=== PATIENT | female | born 1990 | race Caucasian/White ===

== ENCOUNTER 2017-05-04 20:17 | Inpatient (IN) | payer OTHER ==
[2017-05-04 21:03] LABS: AMNISURE (ROM) POSITIVE (NEGATIVE)
[2017-05-04 21:06] LABS: APPEARANCE,URINE CLOUDY; BILIRUBIN,URINE NEGATIVE (NEGATIVE); GLUCOSE, URINE NEGATIVE (NEGATIVE); KETONES,URINE TRACE mg/dL (NEGATIVE); LEUKOCYTE ESTERASE,URINE TRACE (NEGATIVE); NITRITE,URINE NEGATIVE (NEGATIVE); PROTEIN,URINE NEGATIVE (NEGATIVE); UROBILINOGEN,URINE NEGATIVE mg/dL (<2.0)
[2017-05-04 21:27] LABS: URINE BARBITURATES SCREEN NEGATIVE; URINE METHADONE SCREEN NEGATIVE; URINE OPIATES LOW NEGATIVE; URINE PHENCYCLIDINE SCREEN NEGATIVE
[2017-05-04] MEDS ORDERED: RINGERS SOLUTION,LACTATED 1,000 ML IV ONE (21:37)
[2017-05-04] MEDS ORDERED: RINGERS SOLUTION,LACTATED 300 ML IV ONE (21:42)
[2017-05-04] MEDS ORDERED: OXYTOCIN/NORMAL SALINE 20 UNIT/1,000 ML RTUINJ IV PRN (21:42)
[2017-05-04] MEDS ORDERED: OXYTOCIN/NORMAL SALINE 20 UNIT/1,000 ML RTUINJ ONE (22:19)
[2017-05-04] MEDS: RINGERS SOLUTION,LACTATED 1,000 ML IV PRN (22:52)
[2017-05-04 23:30] LABS: ABSOLUTE EOSINOPHILS # (AUTO) 0.1 10^3/uL (0.0-0.6); ABSOLUTE LYMPHOCYTES (AUTO) 1.8 10^3/uL (0.5-4.7); ABSOLUTE MONOCYTES (AUTO) 0.5 10^3/uL (0.1-1.4); ABSOLUTE NEUT (AUTO) 4.4 10^3/uL (1.7-8.2); BASOPHILS % (AUTO) 0.6 % (0-2); EOSINOPHILS % (AUTO) 1.4 % (0-6); HEMATOCRIT 33.9 % (36.0-47.0); HEMOGLOBIN 11.5 g/dL (12.0-15.5); HGB HCT DIFFERENCE 0.6; MEAN CORPUSCULAR HGB CONC 33.9 g/dL (32.0-36.0); MEAN CORPUSCULAR VOLUME 86 fl (80-97); MONOCYTES % (AUTO) 6.8 % (3-13); RED BLOOD COUNT 3.96 10^6/uL (3.72-5.28); RED CELL DISTRIBUTION WIDTH 14.1 % (11.5-14.0); SEGMENTED NEUTROPHILS % (AUTO) 65.2 % (42-78); WHITE BLOOD COUNT 6.8 10^3/uL (4.0-10.5)
[2017-05-05] MEDS ORDERED: PROMETHAZINE HCL INJ 25 MG/1 ML VIAL ONE (03:08)
[2017-05-05] MEDS ORDERED: PROMETHAZINE HCL INJ 25 MG/1 ML VIAL IV ONE (03:15)
[2017-05-05] MEDS ORDERED: SUMATRIPTAN 20 MG NASAL SPRAY UD NASL ONE ×2 (03:46→04:00)
[2017-05-05] MEDS ORDERED: EPHEDRINE SULFATE INJ 50 MG/1 ML AMPULE ONE ×2 (05:27→06:49)
[2017-05-05] MEDS ORDERED: FENTANYL/BUPIVACAINE/NS/PF 200 MCG/100 ML RTUINJ EPI ONE (05:28)
[2017-05-05] MEDS ORDERED: BUPIVACAINE HCL 0.25 % INJ/PF (2.5 MG/1 ML) 30 ML VIAL ONE (05:29)
[2017-05-05] MEDS: RINGERS SOLUTION,LACTATED 1,000 ML IV PRN (06:54)
[2017-05-05] MEDS ORDERED: OXYTOCIN/NORMAL SALINE 20 UNIT/1,000 ML RTUINJ IV PRN ×2 (08:20→15:23)
[2017-05-05] MEDS ORDERED: NA PHOS,M-B/NA PHOS,DI-BA (ADULT) 133 ML ENEMA PR PRN (15:23)
[2017-05-05] MEDS ORDERED: ZOLPIDEM TARTRATE 5 MG TABLET PO PRN (15:23)
[2017-05-05] MEDS ORDERED: DIBUCAINE 1% OINTMENT 28 GM TP PRN (15:23)
[2017-05-05] MEDS ORDERED: PROMETHAZINE HCL INJ 25 MG/1 ML VIAL IV PRN (15:23)
[2017-05-05] MEDS ORDERED: GLYCERIN/WITCH HAZEL LEAF 1 EACH MED..PAD TP PRN (15:23)
[2017-05-05] MEDS ORDERED: DIPH/PERTUSS(ACELL)/TETANUS VAC/PF 0.5 ML SYR (>=10YO) IM PRN (15:23)
[2017-05-05] MEDS ORDERED: PSEUDOEPHEDRINE HCL 30 MG TABLET PO PRN (15:23)
[2017-05-05] MEDS ORDERED: MAGNESIUM HYDROXIDE SUSP 30 ML UDCUP PO PRN (15:23)
[2017-05-05] MEDS ORDERED: PROMETHAZINE HCL 25 MG SUPP.RECT PR PRN (15:23)
[2017-05-05] MEDS ORDERED: DIPHENHYDRAMINE HCL 25 MG CAPSULE PO PRN (15:23)
[2017-05-05] MEDS ORDERED: MEASLES,MUMPS&RUBELLA VACC/PF 0.5 ML VIAL SUBCUT PRN (15:23)
[2017-05-05] MEDS ORDERED: PROMETHAZINE HCL 25 MG TABLET PO PRN (15:23)
[2017-05-05] MEDS ORDERED: ACETAMINOPHEN 650 MG SUPP.RECT PR PRN (15:23)
[2017-05-05] MEDS ORDERED: BENZOCAINE/MENTHOL AEROSOL SPRAY 56 ML TOP PRN (15:23)
[2017-05-05] MEDS ORDERED: ACETAMINOPHEN WITH CODEINE #3 TABLET PO PRN ×2 (15:23)
[2017-05-05] MEDS ORDERED: IBUPROFEN 800 MG TABLET ONE (15:26)
[2017-05-05] MEDS ORDERED: ACETAMINOPHEN WITH CODEINE #3 TABLET ONE (15:26)
--- NOTE | 2017-05-05 17:20 | Delivery Summary ---
Del Sum A-C Datetime Report Generated by CPN: 05/05/2017 17:20 DELIVERY PERSONNEL DELIVERY PERSONNEL: [id number] Delivery Doctor:: Marie Das MD Labor and Delivery Nurse:: Karen Sydney, RN Nursery Nurse:: Alfreda Worthington, RN MATERNAL INFORMATION Delivery Anesthesia: Epidural Medications After Delivery: Pitocin Drip 20 Units/1000ml NSS Estimated Blood Loss (ml): 200 Maternal Complications: Prolonged Second Stage > 2 Hrs LABOR SUMMARY EDC: 05/03/2017 00:00 No. Babies in Womb: 0 Attempted: No Labor Anesthesia: Epidural LABOR INFORMATION Reason for Induction: Not Applicable Onset of Labor: 05/05/2017 05:18 Complete Dilatation: 05/05/2017 10:26 Oxytocin: Augmentation Group B Beta Strep: negative Steroids Given: None Reason Steroids Not Administered: Not Applicable MEMBRANES Membranes Rupture Method: Spontaneous Rupture of Membranes: 05/04/2017 18:00 Length of Rupture (hr): 21.10 Amniotic Fluid Color: Clear Amniotic Fluid Amount: Small Amniotic Fluid Odor: Normal STAGES OF LABOR Stage 1 hr: 5 Stage 1 min: 8 Stage 2 hr: 4 Stage 2 min: 40 Stage 3 hr: 0 Stage 3 min: 5 Total Time in Labor hr: 9 Total Time in Labor min: 53 VAGINAL DELIVERY Episiotomy: None Laceration Extension: N/A Laceration Type: None Laceration Repair: Not Applicable Sponge Count Correct: Yes Sharps Count Correct: Yes CSECTION DELIVERY Primary Indication: N/A Secondary Indication: N/A CSection Incidence: N/A Labor: N/A Elective: N/A CSection Incision: N/A BABY A INFORMATION Delivery Date/Time: 05/05/2017 15:06 Method of Delivery: Vaginal Born in Route : No : N/A Forceps: N/A Vacuum Extraction: N/A Shoulder Dystocia : No ASSISTED DELIVERY BABY A Indication for Assisted Delivery: lates Catheter Prior to Procedure: Yes Station Vacuum/Forcep Apply: +3 Position Vacuum/Forcep Apply: Left Occipital Anterior Vacuum Number of Pulls: 2 Vacuum Number of PopOffs: 2 Vacuum Maximum Pressure Obtained: 500 Reduce Pressure btwn Ctx: Yes Vacuum Cyber Security Systems Engineer: [place] Total Time Vacuum Applied: 2 PRESENTATION/POSITION BABY A Presentation: Cephalic Cephalic Presentation: Vertex Vertex Position: Left Occipital Anterior Breech Presentation: N/A PLACENTA INFORMATION BABY A Placenta Delivery Time : 05/05/2017 15:11 Placenta Method of Delivery: Spontaneous Placenta Status: Delivered SCORES BABY A Heart Rate 1 min: >100 bpm Resp Effort 1 min: Good Cry Reflex Irritability 1 min: Cough or Sneeze or Pulls Away Muscle Tone 1 min: Active Motion Color 1 min: Blue/Pale Resuscitation Effort 1 min: Tactile Stimulation SCORE 1 MIN: 8 Heart Rate 5 min: >100 bpm Resp Effort 5 min: Good Cry Reflex Irritability 5 min: Cough or Sneeze or Pulls Away Muscle Tone 5 min: Some Flexion of Extremities Color 5 min: Completely Cerulean Resuscitation Effort 5 min: N/A SCORE 5 MIN: 9 INFORMATION BABY A Gestational Age at Delivery: 40.2 Gestational Status: Full Term- 39- 40.6 Weeks Infant Outcome : Liveborn Infant Condition : Stable Sex: Female IDENTIFICATION BABY A Infant Verification Date/Time: 05/05/2017 15:30 ID Band Number: [id number] Mother's Name Verified: Yes RN Verifying : Amy Palacio, RN/ B. Nicholedy, RN WEIGHT/LENGTH BABY A Infant Birthweight (gm): 3500 Weight (lb): 7 Infant Weight (oz): 11 Infant Length (in): 20.00 Length (cm): 50.80 CORD INFORMATION BABY A No. 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
--- NOTE | 2017-05-05 18:10 | Admission Physical ---
Datetime Report Generated by CPN: 05/05/2017 18:10 CURRENT ADMISSION Hx Assessment: The History has been Reviewed and is Current Chief Complaint: Suspected Ruptured Membranes Admit Plan: Initiate Labor Induction Protocol ALLERGIES Medication Allergies: No Medication Allergies: No Known Allergies (05/04/2017) Latex: No Latex Allergies Environmental Allergies: cats OBSTETRICAL HISTORY EDC: 05/03/2017 00:00 : 1 Para: 0 Term: 0 : 0 SAB: 0 IAB: 0 Ectopic: 0 Livin Cesareans: 0 VBACs: 0 Multiple Births: 0 Gestational Diabetes: No Rh Sensitization: No Incompetent Cervix: No JORGE: No Infertility: No ART Treatment: No Uterine Anomaly: No IUGR: No Hx Previous C/S: No Macrosomia: No Hx Loss/Stillborn: No PIH: No Hx : No Placenta Previa/Abruption: No Depression/PP Depression: No PTL/PROM: No Post Hemorrhage: No Current Procedures: Ultrasound; NST Obstetrical History Comments: g1- current pregnacy SEE RECORDS Alcohol: No Marijuana : No Cocaine: No Other Illicit Drugs: No Cigarettes: Never Smoker. 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 Heart Disease: No Hosp/Surgery: No Autoimmune Disorder: No Anesthetic Complications: No Kidney Disease: No Abnormal Pap Smear: No Neuro/Epilepsy: Yes Psychiatric Disorders: No Other Medical Diseases: No Hepatitis/Liver Disease: No Significant Family History: No Varicosities/Phlebitis: No Trauma/Violence : No Thyroid Dysfunction: No Medical History Comments: migraines, asthma INFECTIOUS HISTORY Gonorrhea: No Genital Herpes: No Chlamydia: No Tuberculosis: No Syphilis: No Hepatitis: No HIV/AIDS Exposure: No Rash or Viral Illness: No HPV: No PHYSICAL EXAM General: Normal HEENT: Normal Neurologic: Normal Thyroid: Normal Heart: Normal Lungs: Normal Breast: Normal Back: Normal Abdomen: Normal Genitourinary Exam: Normal Extremities: Normal DTRs: Normal Pelvic Type: Adequate Vital Signs: Reviewed FETUS A EGA: 40.1 Monitoring: External US FHR Category: Category I Admit Comment: Term srom-discussed r/b/a of pit induction and pt wishes to proceed PLANS FOR LABOR AND DELIVERY Labor and Delivery: None Pain Management: Medications; Epidural Feeding Preference: Breast Benefit of Breast Feed Discussed: Yes Circumcision: N/A INFORMED CONSENT Signature: with User ID: [email or web address]
[2017-05-05] MEDS: DOCUSATE SODIUM 100 MG CAPSULE PO SCH (18:53)
[2017-05-05] MEDS: FERROUS SULFATE 325 MG TABLET PO SCH (18:53)
[2017-05-05] MEDS: IBUPROFEN 800 MG TABLET PO SCH (21:19)
[2017-05-05] MEDS: FAMOTIDINE 20 MG TABLET PO SCH (21:20)
[2017-05-06] MEDS: IBUPROFEN 800 MG TABLET PO SCH ×3 (05:06→21:49)
[2017-05-06 08:11] LABS: HEMATOCRIT 32.3 % (36.0-47.0); HEMOGLOBIN 11.2 g/dL (12.0-15.5); HGB HCT DIFFERENCE 1.3; MEAN CORPUSCULAR HEMOGLOBIN 29.7 pg (27.0-33.4); MEAN CORPUSCULAR HGB CONC 34.6 g/dL (32.0-36.0); MEAN CORPUSCULAR VOLUME 86 fl (80-97); RED BLOOD COUNT 3.76 10^6/uL (3.72-5.28); RED CELL DISTRIBUTION WIDTH 14.6 % (11.5-14.0); WHITE BLOOD COUNT 9.7 10^3/uL (4.0-10.5)
[2017-05-06] MEDS: FAMOTIDINE 20 MG TABLET PO SCH ×2 (09:05→21:49)
[2017-05-06] MEDS: FERROUS SULFATE 325 MG TABLET PO SCH ×2 (09:06→17:15)
[2017-05-06] MEDS: DOCUSATE SODIUM 100 MG CAPSULE PO SCH ×2 (09:06→17:15)
[2017-05-06] MEDS: PRENATAL VITAMIN W-O CA NO5/FE FUMARATE/FA CAPSULE PO SCH (09:13)
[2017-05-06] MEDS: SENNOSIDES/DOCUSATE 8.6-50 MG 1 EACH TABLET PO SCH (09:17)
--- NOTE | 2017-05-06 12:11 | PDOC PROGRESS REPORT ---
Subjective-OB Subjective: Post Delivery Day:1 27 year old G1 now P1 s/p VAVD ppd1. Ambulating, voiding and without difficulty. Denies any needs at this time Physical Exam (OB) Vital Signs: Temp Pulse Resp BP Pulse Ox 98.1 F 67 16 125/83 100 05/06/17 08:00 05/06/17 08:00 05/06/17 08:00 05/06/17 08:00 05/06/17 08:00 Intake & Output 05/05/17 05/06/17 05/07/17 06:59 06:59 06:59 Weight 83.25 kg - General General Appearance: Appears well In distress: None - PIH/Pre-Eclampsia DTR's: 1 + Clonus: Negative Headache: Absent Epigastric Pain: No Visual Changes: No - Episiotomy/Laceration Site Condition: N/A - Lochia Lochia Amount: Scant < 10 ml Lochia Color: Rubra/Red - Abdomen Description: Soft Hernia Present: No Fundal Description: Firm Fundal Height: u/u - u/2 - Respiratory Respiratory Status: No respiratory distress - Extremities Upper extremity: Normal inspection Lower extremities: Normal inspection - Neurological Cognition: Normal Orientation: AAOx4 - Psychological Associated symptoms: Normal affect, Normal mood Objective-Diagnostic Laboratory: 05/06/17 07:48 05/06/17 07:48 WBC 9.7 RBC 3.76 Hgb 11.2 L Hct 32.3 L MCV 86 MCH 29.7 MCHC 34.6 RDW 14.6 H Plt Count 165 Assessment and Plan(PN) - Assessment and Plan (1) Vacuum extraction, delivered, current hospitalization Is this a current diagnosis for this admission?: Yes Plan: routine pp care - Time Spent with Patient Time with patient: 15-25 minutes Medications reviewed and adjusted accordingly: Yes - Disposition Anticipated Discharge: Home Within: within 24 hours
[2017-05-06 20:19] VITALS: BP 126/86
[2017-05-07] MEDS: IBUPROFEN 800 MG TABLET PO SCH (06:29)
--- NOTE | 2017-05-07 09:29 | PDOC PROGRESS REPORT ---
Subjective-OB Subjective: Post Delivery Day:2 27 year old. Pt verbalizes readiness for discharge, is tearful, denies si/hi, desires referral for outpatient counseling, declines meds at this time. Physical Exam (OB) Vital Signs: Temp Pulse Resp BP Pulse Ox 98.0 F 74 18 126/86 H 99 05/06/17 19:39 05/06/17 19:39 05/06/17 19:39 05/06/17 19:39 05/06/17 19:39 Intake & Output 05/06/17 05/07/17 05/08/17 06:59 06:59 06:59 Weight 83.25 kg - Lochia Lochia Amount: Small 10-25 ml Lochia Color: Rubra/Red - Abdomen Description: Soft, Flat Hernia Present: No Fundal Description: Firm Fundal Height: u/u - u/2 Objective-Diagnostic Laboratory: 05/06/17 07:48 Assessment and Plan(PN) - Assessment and Plan (1) History of depression Is this a current diagnosis for this admission?: Yes Plan: discharge planning list of out pt resources given to pt (2) Vacuum extraction, delivered, current hospitalization Is this a current diagnosis for this admission?: Yes Plan: routine ppc care - Time Spent with Patient Time with patient: Less than 15 minutes Critical Time spent with patient: Less than 15 minutes Medications reviewed and adjusted accordingly: Yes - Disposition Anticipated Discharge: Home Within: within 24 hours
--- NOTE | 2017-05-07 09:31 | PDOC DISCHARGE SUMMARY ---
Final Diagnosis Discharge Date: 05/07/17 - Final Diagnosis (1) History of depression Is this a current diagnosis for this admission?: Yes (2) Vacuum extraction, delivered, current hospitalization Is this a current diagnosis for this admission?: Yes Discharge Data - Discharge Medication Home Medications: Prenat 115/Iron Fum/Folic/Dss [ 19 Tablet] 1 tab PO DAILY 05/05/17 Sumatriptan Succinate [Imitrex] 50 mg PO DAILYP PRN 05/05/17 Docusate Sodium [Colace 100 mg Capsule] 100 mg PO BID #60 capsule 05/07/17 Ibuprofen [Motrin 800 mg Tablet] 800 mg PO Q8 #60 tablet 05/07/17 Gestational Age: 40.2 Reason(s) for Admission: Onset of Labor Procedures: NST Intrapartum Procedure(s): Spontaneous Vaginal Delivery - Data Baby 1 Female at 1 minute: 8 at 5 minutes: 9 Weight: 3.487 kg Home with Mother: Yes Complications: No - Diagnosis Test Laboratory: Temp Pulse Resp BP Pulse Ox 98.0 F 74 18 126/86 H 99 05/06/17 19:39 05/06/17 19:39 05/06/17 19:39 05/06/17 19:39 05/06/17 19:39 05/04/17 05/04/17 05/06/17 20:30 22:45 07:48 RBC 3.96 3.76 Hgb 11.5 L 11.2 L Hct 33.9 L 32.3 L Urine Opiates Screen NEGATIVE - Discharge information/Instructions Discharge Activity: Activity As Tolerated, Pelvic Rest, No tub bath Discharge Diet: Regular Disposition: HOME, SELF-CARE Follow up with: [facility] in: 1, Weeks - 1 week check up d/t depression
[2017-05-07] MEDS: PRENATAL VITAMIN W-O CA NO5/FE FUMARATE/FA CAPSULE PO SCH (09:37)
[2017-05-07] MEDS: DOCUSATE SODIUM 100 MG CAPSULE PO SCH (09:38)
[2017-05-07] MEDS: SENNOSIDES/DOCUSATE 8.6-50 MG 1 EACH TABLET PO SCH (09:38)
[2017-05-07] MEDS: FERROUS SULFATE 325 MG TABLET PO SCH (09:38)
[2017-05-07] MEDS: FAMOTIDINE 20 MG TABLET PO SCH (10:27)
== END 2017-05-07 13:25 | disposition home or self-care (01) | DRG 775 ==
LOC: LC 20:17 → LR 21:28 → 2S 05-05 17:53
PROVIDERS: ADMIT Obstetrics & Gynecology; ATTEND Obstetrics & Gynecology
PROC: 10D07Z6 Extraction of Products of Conception, Vacuum, Via Natural or Artificial Opening (ICD-10-PCS; principal; 2017-05-05)
DX: O76 Abnormality in fetal heart rate and rhythm complicating labor and delivery (principal); O63.1 Prolonged second stage (of labor); Z3A.40 40 weeks gestation of pregnancy; Z37.0 Single live birth
CPT/HCPCS: 36415; 80307; 81005; 84112; 85025; 85027; 86592; 86850; 86900; 86901; 94760; J2550; J2590; J3490